=== PATIENT | female | born 1950 | race Caucasian/White ===

== ENCOUNTER 2024-04-28 09:40 | Emergency (ER) | payer OTHER ==
[~2024-04-28] VITALS: Ht 172.7 cm; Wt 67.1 kg
[2024-04-28] MEDS ORDERED: AMLO-212 PO (10:06)
[2024-04-28] MEDS ORDERED: CYAN50009 PO (10:06)
[2024-04-28] MEDS ORDERED: PRED2.5T PO (10:06)
[2024-04-28] MEDS ORDERED: METF-440 PO (10:06)
[2024-04-28] MEDS ORDERED: AMOX500C2 PO (10:06)
[2024-04-28] MEDS ORDERED: CALC-867 PO (10:06)
[2024-04-28] MEDS ORDERED: CHOL10005 PO (10:06)
[2024-04-28] MEDS ORDERED: ROSU20TA2 PO (10:06)
[2024-04-28] MEDS ORDERED: CEFTRIAXONE /D5W 50ML IVPB **ER PYXIS IV ONE (10:08)
[2024-04-28] MEDS ORDERED: DEXAMETHASONE SOD PHOSPHATE 10 MG INJ ONE (10:08)
[2024-04-28] MEDS ORDERED: AZITHROMYCIN 500MG/ D5W 250ML IVPB **ER PYXIS ONLY IV ONE (10:09)
[2024-04-28] MEDS ORDERED: DEXAMETHASONE SOD PHOSPHATE 4 MG INJ ONE (10:11)
[2024-04-28] MEDS: AZITHROMYCIN IV 500 MG in IV DEXTROSE 5% 250 ML IV ONE (10:18)
[2024-04-28] MEDS: CEFTRIAXONE 1 G in IV DEXTROSE 5% 50 ML IV ONE (10:18)
[2024-04-28] MEDS: IV NORMAL SALINE 1000 ML BAG IV ONE (10:18)
[2024-04-28] MEDS: DEXAMETHASONE SOD PHOSPHATE 4 MG INJ IV ONE (10:18)
[2024-04-28 10:22] LABS: BASOPHILS % (AUTO) 0.6 % (0.0-2.0); EOSINOPHILS % (AUTO) 0.1 % (0.0-7.0); HEMATOCRIT 40.3 % (31.2-41.9); HEMOGLOBIN 13.1 g/dL (10.9-14.3); LYMPHOCYTES # (AUTO) 1.1 K/uL (0.8-4.8); MEAN CORPUSCULAR HEMOGLOBIN 25.8 uug (24.7-32.8); MEAN CORPUSCULAR HGB CONC 32 g/dL (32.3-35.6); MEAN CORPUSCULAR VOLUME 79.5 fL (75.5-95.3); MONOCYTES # (AUTO) 0.4 K/uL (0.1-1.30); MONOCYTES % (AUTO) 5.7 % (0.0-11.0); NEUTROPHILS # (AUTO) 5.7 K/uL (1.8-8.9); NEUTROPHILS % (AUTO) 78.6 % (38.5-71.5); PLATELET COUNT (AUTO) 246 K/uL (179-408); RED BLOOD CELL COUNT(AUTO) 5.08 MIL/uL (3.63-4.92); RED CELL DISTRIBUTION WIDTH 16.5 % (12.3-17.7); WHITE BLOOD COUNT (AUTO) 7.2 K/uL (3.8-11.8)
[2024-04-28 10:28] LABS: DIFFERENTIAL COMMENT 1
[2024-04-28 10:48] LABS: ACETAMINOPHEN < 2.0 ug/mL (10-30); ALANINE AMINOTRANSFERASE 14 U/L (14-59); ALBUMIN 3.5 g/dL (3.4-5.0); ALKALINE PHOSPHATASE 63 U/L (50-136); ASPARTATE AMINOTRANSFERASE 7 U/L (15-37); BILIRUBIN,DIRECT 0.2 mg/dL (0.0-0.2); BILIRUBIN,TOTAL 0.8 mg/dL (0.2-1.0); CALCIUM 8.7 mg/dL (8.5-10.1); CARBON DIOXIDE 23 mmol/L (21-32); CHLORIDE 99 mmol/L (98-107); CREATININE 0.8 mg/dL (0.6-1.3); GLUCOSE 121 mg/dL (74-106); NT-PRO BNP 201 pg/mL (0-125); SODIUM SERUM 136 mmol/L (136-145); TOTAL PROTEIN, SERUM 7.7 g/dL (6.4-8.2); UREA NITROGEN, BLOOD 15 mg/dL (7-18)
[2024-04-28 10:50] LABS: ETHANOL < 3 MG/DL (0-10)
[2024-04-28 11:14] LABS: ABG HCO3 18.1 mmol/L (22.0-26.0); ABG PCO2 25.6 mmHg (35.0-48.0); ABG PH 7.468 (7.340-7.440); ABG PO2 72.7 mmHg (75.0-100.0); ABG TOTAL HEMOGLOBIN 12.9 G/dL (12.0-16.0); AaDO2 95.7 mmHg; COHb 0.4 % (0.0-3.9); O2Hb 94.4 % (94.0-97.0)
[2024-04-28] MEDS ORDERED: IOHEXOL 350 100 ML INFUS..BTL ONE (11:25)
[2024-04-28] MEDS ORDERED: LIDOCAINE 1%-EPI 1:100,000 20 ML VIAL ONE (12:17)
[2024-04-28 14:57] LABS: *BILIRUBIN,URIN NEGATIVE (NEGATIVE); *BLOOD, URINE 1+ (NEGATIVE); *CLARITY,URINE CLEAR (CLEAR); *COLOR,URINE YELLOW (YELLOW); *KETONES,URINE 2+ (NEGATIVE); *PROTEIN,URINE NEGATIVE (NEGATIVE); *UROBILINOGEN,URINE 0.2 E.U./dl (NORMAL); LEUKOCYTE ESTERASE ,URINE NEGATIVE (NEGATIVE); NITRITE, URINE NEGATIVE (NEGATIVE); UGLUCOSE NEGATIVE (NEGATIVE)
[2024-04-28 15:02] LABS: *AMPHETAMINE, URINE NEGATIVE (NEGATIVE); *BARBITURATE, URINE NEGATIVE (NEGATIVE); *BENZODIAZEPINE, URINE NEGATIVE (NEGATIVE); *CANNABINOID, URINE NEGATIVE (NEGATIVE); *COCCAINE, URINE NEGATIVE (NEGATIVE); *OPIATE, URINE NEGATIVE (NEGATIVE); *PHENCYCLIDINE SCREEN,URINE NEGATIVE (NEGATIVE)
[2024-04-28 15:05] LABS: FENTANYL, URINE NEGATIVE (NEGATIVE)
[2024-04-28 15:45] LABS: BACTERIA,URINE FEW /HPF (NONE SEEN); SQUAMOUS EPITHELIAL CELL,UR MANY /HPF (NONE SEEN); WBC,URINE 0-3 /HPF (0-3)
[2024-04-28 17:56] VITALS: BP 147/77; TEMP 100; O2SAT 100
== END 2024-04-28 18:03 | disposition short-term general hospital (02) ==
LOC: ER 09:40
DX: R41.0 Disorientation, unspecified (principal); J18.8 Other pneumonia, unspecified organism; E11.9 Type 2 diabetes mellitus without complications; E78.5 Hyperlipidemia, unspecified; Z79.1 Long term (current) use of non-steroidal anti-inflammatories (NSAID); Z79.84 Long term (current) use of oral hypoglycemic drugs; Z79.899 Other long term (current) drug therapy; Z20.822 Contact with and (suspected) exposure to COVID-19
CPT/HCPCS: 80076; 80048; 81001; 83880; 85025; 84145; 85730; 87426; 87040 ×2; 84484; 36415; 93005 ×2; 71045; 70450; 71275; 99291; 96365; 96368; 96375; 83605; 87086; 80299; 80320; 80307; J0456; J0696; J1100; Q9967; J7040; A4606; A4663; G0480; J3490